=== PATIENT | male | born 1985 | race Caucasian/White ===

== ENCOUNTER 2020-09-11 07:56 | Day surgery (SDC) | payer OTHER, SELFPAY ==
[2020-09-09 11:06] VITALS: BMI 26.3
[2020-09-11] VITALS (7 sets, daily range): BP systolic 116–133; BP diastolic 70–89; PULSE 69–86; RESP 16–18; TEMP 36.3–36.6; O2SAT 99–100
[2020-09-11] MEDS: sodium chloride 0.9% 1,000 ML 30 ML IV (08:39)
--- NOTE | 2020-09-11 08:50 | W.PM.OPSUD ---
Surgery/Procedure H&P Update DATE OF PROCEDURE: September 11, 2020 DATE H&P PERFORMED: 08/30/20 H&P UPDATE INFORMATION: I have reviewed H&P completed within last 30 days, I have examined patient prior to procedure and No changes to prior documentation PREOP DIAGNOSIS: Symptomatic hemorrhoids PRIMARY INDICATION FOR PROCEDURE: The same PLANNED PROCEDURE: Operation Date: 09/11/20 09:20 Proposed Procedures p Exam Under Anesthesia 60523 13239 K64.99(Not Applicable) - Arnulfo Leija MD s Hemorroidectomy(Not Applicable) - Arnulfo Leija MD
[2020-09-11] MEDS: piperacillin-tazobactam 3.375 GM in sodium chloride 0.9% (plus) 50 ML IV (09:10)
--- NOTE | 2020-09-11 09:49 | P.OP_ITS ---
Operative Report Date of procedure: September 11, 2020 Pre-op Diagnosis: Symptomatic hemorrhoids Post-op diagnosis: same (Left lower lateral external/internal hemorrhoid) Post-op Findings: Small right upper lateral hemorrhoid Procedure Done: Examination under anesthesia and hemorrhoidectomy of the left lower lateral hemorrhoid Implants: Xeroform and Surgicel Specimens removed/disposition: Left lower lateral hemorrhoid Surgeon: Arnulfo Leija Medical Record Assistant: nuclear fuel processing technician Jacqueline Circulating nurse Kalyani Anesthesia: General (LMA vacuum cleaner repairer Minna) Estimated blood loss (mL): 10 Condition: stable Disposition: same day Brief History: Symptomatic hemorrhoids Full H&P per an informed consent chart Procedure: Patient was identified in the holding area and was taken back to the operating room, which was first placed in supine position LMA was placed by anesthesia, prophylactic IV antibiotics were given per protocol,Timeout was done verifying the patient's name/date of /planned procedure and destination after the procedure, all were in agreement. we placed the patient after that in the left lateral position were all pressure points were padded, Prep and drape was done thereafter under the usual sterile technique,started by pudendal nerve block on the left side, injecting Exparel , guided by the examining finger towards the ischial spine on the left side, followed by that digital rectal examination showed no masses were appreciated or bleeding. Anoscope was then introduced I was able to identify the internal/external hemorrhoid left lower lateral.I placed a wet 4 x 4 inside the anal canal to prevent stools from encroaching on the wound site, that was taken out at the end of the procedure. I did apply a hemostat at the origin of the hemorrhoidal tissue, the left lower hemorrhoid followed by the dissecting it with harmonic scalpel device safeguarding the external anal sphincter after that I was able to deliver the specimen to the circulating nurse hemostasis was achieved, hemorrhoidectomy was then achieved, and running 2-0 chromic catgut suture was applied to approximate the edges of the hemorrhoidectomy sites, that was done after thorough irrigation of the wound with warm normal saline. There was a small mucosal tear anteriorly, hemostasis was achieved using Bovie cauterization At that point after removal of the 4 x 4'sx1, I applied a piece of Xeroform impregnated lidocaine 2% jelly at the site of the wound and a piece of Surgicel both were rolled up as a Cigar like and and 2-0 silk stitch was applied at the end that faces the exit of the anus as it will be easier to pull out later on, followed by 4 x 4 application and ABD,a surgical pants was then placed to hold the dressing in place. Count was completed at the end of the procedure, patient was then extubated and was taken to the recovery room in stable condition I was present for the whole entire procedure
--- NOTE | 2020-09-11 10:04 | ANES.PREANE2 ---
Pre-Anesthetic Assessment Pre-Anesthetic Assessment: Height/Weight: Height 1.88 m Weight 92.986 kg Temp Pulse Resp BP Pulse Ox 97.4 F L 71 16 123/81 99 09/11/20 08:16 09/11/20 08:16 09/11/20 08:16 09/11/20 08:16 09/11/20 08:16 Preop Diagnosis: Symptomatic hemorrhoids Proposed Procedure: Operation Date: 09/11/20 09:20 Proposed Procedures p Exam Under Anesthesia 59060 49469 K64.99(Not Applicable) - Arnulfo Leija MD s Hemorroidectomy(Not Applicable) - Arnulfo Leija MD Was Beta Kalyani taken within 24 hours: N/A Last intake: Intake Last Liquid Date 09/10/20 Last Liquid Time 22:00 Last Solid Date 09/10/20 Last Solid Time 22:00 Social: Social History: Tobacco and No alcohol Exam: Pre-Anes Outpt Exam: alert, oriented x 3 and regular rate & rhythm Additional Exam Findings (including area of procedure): decreased, rhonchi Airway: Submandibular: WNL Cervical ROM: WNL MP: 2 Dentition: Full Pulmonary: Pulmonary: COPD Anesthetic Plan: ASA status: 2 Anesthesia: General Risk of > 500 ml blood loss (7ml/kg in children): No Meds/Allergies Current Medications: Current Medications Generic Name Dose Route Start Last Admin Trade Name Freq PRN Reason Stop Dose Admin Sodium Chloride 1,000 mls @ 30 ml s/hr 09/11/20 08:15 09/11/20 08:39 Sodium Chloride 0.9% IV 09/12/20 08:14 30 mls/hr .Q24H VICENTE Administration PFSH Anesthesia PFSH: Medical History External hemorrhoids Family History Denies family history of Anesthesia complication Bleeding disorder Social History Smoking and tobacco status: current every day smoker Alcohol intake: never Data Anesthesia Cardiac Studies: No Data to Display
--- NOTE | 2020-09-11 10:07 | SUR.PHASEI ---
0957 PT TO PACU AWAKE ALERT, VSS PT RUBBING AT EYES PT ENCOURAGED TO NOT RUB FACE
--- NOTE | 2020-09-11 10:09 | SUR.PHASEI ---
1003 PT AWAKE ALERT ON RA REQUESTIING JUICE TO SIP ON WILL GIVE REPORT TO OPS.
[2020-09-11] MEDS: HYDROcodone-acetaminophen 5-325 mg Tablet 1 TAB PO (11:23)
== END 2020-09-11 11:35 | disposition home or self-care (01) ==
PROVIDERS: PCP Nurse Practitioner Family; Visit Provider Surgery
PROC: (CPT 46255; principal; 2020-09-11 09:10)
PROC: (CPT 46255; 2020-09-11 09:10)
DX: K64.8 Other hemorrhoids (principal); F17.210 Nicotine dependence, cigarettes, uncomplicated; J44.9 Chronic obstructive pulmonary disease, unspecified
CPT/HCPCS: 46255; 12345; 88304; C9290; J0131; J2250; J2405; J2543; J3010; J3490; J7030

== ENCOUNTER → 2021-03-12 13:03 | Outpatient (BNVA) | payer OTHER, SELFPAY | PROVIDERS: PCP Nurse Practitioner Family; Visit Provider Nurse Practitioner Family | DX: Z20.822 Contact with and (suspected) exposure to COVID-19 (principal); J06.9 Acute upper respiratory infection, unspecified | CPT/HCPCS: 87635 ==